=== PATIENT | female | born 1950 | race African-American/Black ===

== ENCOUNTER 2018-01-28 11:19 | Observation (INO) | payer OTHER ==
[2018-01-28 12:53] VITALS: BMI 20.9
[2018-01-28] MEDS ORDERED: SODIUM CHLORIDE 0.9% 10ML INJ IV PRN (13:21)
[2018-01-28] MEDS ORDERED: PANTOPRAZOLE 40 MG INJ IVP ONE (13:21)
[2018-01-28 13:43] LABS: Urine Appearance CLEAR; Urine Bilirubin NEGATIVE (NEG); Urine Blood NEGATIVE (NEG); Urine Color YELLOW; Urine Glucose NEGATIVE (NEG); Urine Protein NEGATIVE (NEG); Urine Specific Gravity <=1.005 (1.005-1.030); Urine Urobilinogen 0.2 mg/dL (0.2-1.0)
[2018-01-28 13:46] LABS: Urine Microscopic Reflex ORDER UMIC
[2018-01-28] MEDS ORDERED: PNEUMOCOCCAL VACCINE 0.5 ML IMVAC ONE (14:00)
[2018-01-28] MEDS ORDERED: INFLUENZA VACCINE (for 3y+) 0.5 ML DOSE IMVAC ONE (14:00)
[2018-01-28 14:27] LABS: Urine Bacteria <20 /HPF (<20); Urine Culture Reflex Order REFLEXED; Urine RBC <5 /HPF (NONE SEEN)
--- NOTE | 2018-01-28 14:27 | RAD REPORT ---
EXAM DESCRIPTION: Nikole Arias (2 Views)01/28/2018 2:18 pm CLINICAL HISTORY: Abdominal pain and breast cancer COMPARISON: February 2017 FINDINGS: The lungs appear clear of acute infiltrate. The heart is normal size IMPRESSION: No acute abnormalities displayed
[2018-01-28] MEDS: D5 0.9 NS 1,000 ML IV SCH (14:35)
[2018-01-28 15:11] LABS: Absolute Lymphocytes (CBC) 1.2 K/uL (0.7-4.9); Absolute Monocytes 0.3 K/uL (0.1-1.3); Absolute Neutrophil 2.3 K/uL (1.8-8.0); Basophils % 0.5 % (0-1.3); Eosinophils % 0.4 % (0-4.4); Hematocrit 39.8 % (36.0-45.0); Lymphocytes % 31.7 % (15.3-44.8); MCH 30.9 pg (27.0-35.0); MCV 92.7 fL (80-100); MPV 9.8 fL (7.6-11.3); Monocytes % 6.9 % (3.3-12.3); RBC Red Blood Cell Count 4.29 M/uL (3.86-4.86)
--- NOTE | 2018-01-28 15:13 | EKG ---
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
[2018-01-28 15:58] LABS: ALT/SGPT 29 U/L (12-78); AST/SGOT 35 U/L (15-37); Albumin 3.9 g/dL (3.4-5.0); Alkaline Phosphatase 51 U/L (45-117); Amylase Level 60 U/L (25-115); BUN Blood Urea Nitrogen 13 mg/dL (7-18); Bicarbonate 27 mmol/L (21-32); Bilirubin Total 0.7 mg/dL (0.2-1.0); Glucose Level 77 mg/dL (74-106); Lipase 91 U/L (73-393); Magnesium 2.4 mg/dL (1.8-2.4); Potassium 4.8 mmol/L (3.5-5.1); Sodium Level 142 mmol/L (136-145); Thyroid Stimulating Hormone 0.746 uIU/mL (0.360-3.740); Troponin I < 0.02 ng/mL (0.0-0.045)
--- NOTE | 2018-01-28 17:44 | RAD REPORT ---
EXAM DESCRIPTION: US - Abdomen Exam Complete - 01/28/2018 4:40 pm CLINICAL HISTORY: Abdominal pain COMPARISON: none FINDINGS: The liver has a normal echotexture. A gallstone is not seen. The gallbladder wall is not thickened. The biliary tree is normal caliber. The pancreatic tail is not well seen. Pancreas appears grossly normal. The right kidney measures 9 centimeters with a normal echotexture. Minimal pyelocaliectasis is seen The left kidney measures 9 centimeters with a normal echotexture. The spleen measures 8 centimeters. The abdominal aorta and inferior vena cava appear unremarkable IMPRESSION: Minimal right pyelocaliectasis
--- NOTE | 2018-01-28 21:16 | RAD REPORT ---
EXAM DESCRIPTION: CT - Abdomen Pelvis W Contrast - 01/28/2018 8:37 pm CLINICAL HISTORY: Abdominal pain. COMPARISON: None. TECHNIQUE: Computed axial tomography of the abdomen and pelvis was obtained. 100 cc Isovue-300 is ad ministered intravenously. Oral contrast was given. All CT scans are performed using dose optimization technique as appropriate and may include automated exposure control or mA/KV adjustment according to patient size. FINDINGS: The liver, spleen, pancreas, adrenals and kidneys appear unremarkable. Minimal right pyelocaliectasis seen on the recent ultrasound has resolved The appendix is normal caliber. There is no evidence of diverticulitis 5 centimeter soft tissue structure is present within the lower pelvis midline. Prominent periuterine veins are seen. A small amount of ascites is present within the pelvis had IMPRESSION: 5 centimeter soft tissue structure within the lower pelvis midline most likely represent s normal uterus. If the patient has had a hysterectomy this could represent a mass. If the patient connors s had a hysterectomy then a pelvic ultrasound would be recommended. Small amount of ascites Prominent periuterine veins can be seen with pelvic venous congestion syndrome
[2018-01-29 02:00] VITALS: O2SAT 97
--- NOTE | 2018-01-29 04:31 | HP ---
Date of Admission: 01/28/2018 Chief Complaint: Abdominal pain, nausea. History Of Present Illness: This is a 67-year-old female patient came into office today with almost 2 weeks history of abdominal pain and nausea. The patient is having pain in her epigastric right upp er quadrant as well as right posterior flank and nausea problem. Pain gets worse after she eats or d rinks anything. No fall. No injury. No rash. No fever, chills. No vomiting. No constipation or diarrhea. No urinary complaints. No acid reflux feeling. After she was evaluated at the office, cory pagan was admitted to the hospital. Allergies: TO CIPRO AND PENICILLIN. Medications: List reviewed. Review of Systems: GI: As mentioned above. All other systems reviewed and negative. Past Medical History: Significant for gastroesophageal reflux disease, breast cancer, hyperlipidemia , leukocytopenia, allergic rhinitis. Past Surgical History: Significant for left breast lumpectomy and . Family History: Significant for prostate cancer, diabetes mellitus. Social History: Negative for smoking, alcohol use. Physical Examination: Vital Signs: Temperature 98, pulse 71, respiratory rate 16, blood pressure 138/62, height 5 feet 7 i nches, weight 133 pounds. General: Awake, alert, oriented, not in distress. HEENT: Head atraumatic, normocephalic. Conjunctivae nonerythematous. Sclerae white. Mouth, no thr ush or edema noted. Ears/Nose, no mass, lesion, discharge noted. Neck: Supple. No JVD, lymph nodes, bruit, thyromegaly noted. Lungs: Bilateral good equal air entry. Clear to auscultation. No rhonchi. No rales. Heart: Normal heart sounds, no murmur or gallop. Abdomen: The patient has tenderness in right upper quadrant and epigastric region. Otherwise, abdom en soft. No guarding, rigidity. No rebound tenderness. Bowel sounds normoactive. No hepatosplenom egaly. Extremities: No leg edema. No calf tenderness. Skin: No rash, ulcer, cellulitis. Lymphatics: No lymph node enlargement in neck, supraclavicular, infraclavicular region. Neuro: No focal neurological deficit. Chest: Unremarkable. External Genitalia: Deferred. Rectal: Deferred. Laboratory Data: After the patient were admitted to the hospital, blood workup done included white c ount 3.7, hemoglobin 13.2, platelets 169. Sodium 142, potassium 4.8, chloride 107, bicarb 27, BUN 13 , creatinine 0.70, glucose 77. Liver function tests unremarkable. Amylase 60, lipase 91. Troponin less than 0.02. Procalcitonin less than 0.05. TSH 0.746. Urinalysis trace esterase, otherwise, neg ative. Chest x-ray, no acute cardiopulmonary changes. Electrocardiogram, normal sinus rhythm, no ac comanche ST-T changes. Abdominal ultrasound shows minimum right pyelocaliectasis. Gallbladder appears no rmal. CAT scan of abdomen and pelvis was ordered, result pending. Impression: 1.Abdominal pain. 2.Nausea. 3.Gastroesophageal reflux disease. 4.Breast cancer. 5.Hypercholesterolemia. 6.Leukocytopenia. Plan: The patient was admitted to the hospital after she was evaluated at the office for further homer luation and management of this problem. She was very uncomfortable at the office and almost had tear s in her eyes when I was examining and talking to her because of her pain and discomfort. IV Protoni x was ordered. IV fluid was ordered. This morning, I did go back to the hospital and informed her a bout her lab results as well as abdominal ultrasound results. CAT scan result is pending. We will f fly up on it. I will see her tomorrow morning for followup. We will continue IV Protonix dependin g on CAT scan results. We will decide further plan of treatment. ASHER/FÁTIMA Voice ID: [id number]
[2018-01-29] MEDS: D5 0.9 NS 1,000 ML IV SCH (05:08)
[2018-01-29] MEDS ORDERED: PANTOPRAZOLE 40 MG INJ IVP SCH (09:00)
[2018-01-29 10:45] VITALS: BP 114/67; TEMP 97.6
[2018-01-29] MEDS ORDERED: INFLUENZA VACCINE (for 3y+) 0.5 ML DOSE IMVAC ONE (11:00)
[2018-01-29] MEDS ORDERED: PNEUMOCOCCAL VACCINE 0.5 ML IMVAC ONE (11:00)
--- NOTE | 2018-01-30 04:07 | DS ---
Date of Discharge: 01/29/2018 Physical Examination: HEENT: Unremarkable. Lungs: Clear to auscultation. Heart: Sounds normal. Abdomen: Soft. Bowel sounds normal. No guarding, rigidity, tenderness, distention. Extremities: No leg edema. Discharge Medications/instructions: 1.Continue all prior home medications. 2.Take pantoprazole 40 mg p.o. daily. 3.Follow up with harness rigger, Dr. Cueva, for EGD test. 4.Follow up at my office in 2 weeks. 5.The patient was advised to follow up with her auto mechanics teacher with a copy of the CAT scan of abdomen and a copy of the result was given to her to take it to her auto mechanics teacher. Hospital Course: A 67-year-old female patient who came into office with 2 weeks' history of abdomina l pain in epigastric and right upper quadrant and right posterior flank, associated with nausea probl em. Please see dictated H and P for more information. After the patient was evaluated at the office , decision was made to admit her to the hospital for further evaluation and management of this proble m. She had routine blood work done, CBC and chemistry, was unremarkable. Cardiac enzymes were korey l. Procalcitonin was normal. Urinalysis was normal. Chest x-ray was negative for any acute cardiop ulmonary changes. Her EKG was normal. Abdominal ultrasound did not show any acute abnormality. Gal lbladder appeared normal. CAT scan of abdomen and pelvis done also was unremarkable. CAT scan did i dentify presence of about 5 cm density in the pelvis region in the region of uterus, likely to be jena robert. The patient has not had a hysterectomy, so this is very likely her postmenopausal uterus that i s present, but I have given her a copy of this and advised her to follow up with her auto mechanics teacher to make sure that there is nothing else to worry about. She was given IV Protonix yesterday and this mo rning when I saw her, she was feeling much better. No new complaints or problems reported. I have a dvised her that she should have an elective EGD done with her harness rigger on an outpatient bas is and she will schedule her appointment with her harness rigger. Final Diagnoses: 1.Abdominal pain. 2.Nausea. 3.Gastroesophageal reflux disease. 4.Hyperlipidemia. 5.Leukocytopenia. 6.Breast cancer. ASHER/MODL Voice ID: [id number] Report ID: [id number]
== END 2018-01-29 10:55 | disposition home or self-care (01) ==
LOC: INTOOBSV 12:08 → 2ND 12:08
PROVIDERS: ADMIT Internal Medicine; ATTEND Internal Medicine
DX: R10.9 Unspecified abdominal pain (principal); R11.0 Nausea; K21.9 Gastro-esophageal reflux disease without esophagitis; E78.5 Hyperlipidemia, unspecified; D72.829 Elevated white blood cell count, unspecified; Z85.3 Personal history of malignant neoplasm of breast; Z88.0 Allergy status to penicillin
CPT/HCPCS: 36415; 71046; 74177; 76700; 80053; 82150; 83690; 83735; 84145; 84443; 84484; 85025; 87077; 87086; 87088; 87186; 90670; 93005; C9113; G0378; G0379; Q2035; Q9967; 81003; 81015